=== PATIENT | male | born 1945 | race Caucasian/White ===

== ENCOUNTER 2019-08-24 07:55 | Day surgery (SDC) | payer MEDICARE, OTHER ==
[~2019-08-24 07:55] MED LIST: Ketamine 500 mg/10 ML MDV ONE; Midazolam 1 MG/ML 2 ML SDV ONE; Propofol 200 MG/20 ML SDV ONE; Sodium Chloride 0.9% 10 ML Syringe FLUSH PRN; fentaNYL 100 MCG/2 ML SDV ONE
[2019-08-24] MEDS ORDERED: Lactated Ringers 1,000 ML IV SCH (09:00)
[2019-08-24] MEDS ORDERED: Lidocaine 0.5% 50 ML SDV ONE (09:10)
[2019-08-24] MEDS ORDERED: fentaNYL 100 MCG/2 ML SDV ONE (09:10)
[2019-08-24] MEDS ORDERED: Ketamine 500 mg/10 ML MDV ONE (09:10)
[2019-08-24] MEDS ORDERED: Propofol 200 MG/20 ML SDV ONE (09:10)
[2019-08-24] MEDS ORDERED: Midazolam 1 MG/ML 2 ML SDV ONE (09:10)
--- NOTE | 2019-08-24 09:18 | PCM.PN ---
- General Info Date of Service: 08/24/19 - Review of Systems Systems Review Comment:: 74-year-old male here for left carpal tunnel release. He has a many year history of symptoms. He also has had a nerve study which documents this condition. He is had no improvement with conservative management. The patient is medically stable to proceed today. His recent history and physical is reviewed and no significant changes are noted. The site of the proposed surgery is confirmed with the patient and marked. I have discussed the proposed left carpal tunnel release with the patient. Indications options and risks are reviewed. He agrees to proceed. - Patient Data Vitals - Most Recent: Last Vital Signs Temp 97.5 F 08/24/19 08:29 Pulse 60 08/24/19 08:29 Resp 16 08/24/19 08:29 BP 119/78 08/24/19 08:29 Pulse Ox 94 L 08/24/19 08:29 Weight - Most Recent: 77.111 kg Med Orders - Current: Current Medications Lactated Ringer's (Ringers, Lactated) 1,000 mls @ 125 mls/hr IV ASDIRECTED RALPH Last Admin: 08/24/19 09:02 Dose: 125 mls/hr Documented by: Sodium Chloride (Saline Flush) 10 ml FLUSH ASDIRECTED PRN PRN Reason: Keep Vein Open Last Admin: 08/24/19 09:02 Dose: 10 ml Documented by: Discontinued Medications Fentanyl (Sublimaze) Confirm Administered Dose 100 mcg .ROUTE .STK-MED ONE Stop: 08/24/19 07:46 Ketamine HCl (Ketalar) Confirm Administered Dose 500 mg .ROUTE .STK-MED ONE Stop: 08/24/19 07:46 Midazolam HCl (Versed 1 Mg/Ml) Confirm Administered Dose 2 mg .ROUTE .STK-MED ONE Stop: 08/24/19 07:46 Propofol (Diprivan 20 Ml) Confirm Administered Dose 600 mg .ROUTE .STK-MED ONE Stop: 08/24/19 07:46 Sepsis Event Note - Focused Exam Vital Signs: Vital Signs Temp Pulse Resp BP Pulse Ox 08/24/19 08:29 97.5 F 60 16 119/78 94 L Date Exam was Performed: 08/24/19 Time Exam was Performed: 09:15 - Problem List Review Problem List Initiated/Reviewed/Updated: Yes - My Orders Last 24 Hours: My Active Orders 08/24/19 09:00 Lactated Ringers [Ringers, Lactated] 1,000 ml IV ASDIRECTED - Assessment Assessment:: Left carpal tunnel syndrome - Plan Plan:: Left carpal tunnel release
[2019-08-24] MEDS ORDERED: Bupivacaine 0.25%/EPINEPHrine 1:200,000 30 ML SDV INFILT ONE (09:39)
--- NOTE | 2019-08-24 09:56 | PCM.OPNOTE ---
- General Post-Op/Procedure Note Date of Surgery/Procedure: 08/24/19 Operative Procedure(s): Left carpal tunnel release Findings: Thickening of the left transverse carpal ligament causing compression of the underlying median nerve. Pre Op Diagnosis: Left carpal tunnel syndrome Post-Op Diagnosis: Same Anesthesia Technique: Regional Block Primary Surgeon: Darian Aguayo Pathology: none EBL in mLs: 5 Complications: None Condition: Good
[2019-08-24 10:26] VITALS: BP 124/75; PULSE 54
--- NOTE | 2019-08-24 16:25 | OR ---
Date of Procedure: 08/24/2019 PREOPERATIVE DIAGNOSIS: Left carpal tunnel syndrome. POSTOPERATIVE DIAGNOSIS: Left carpal tunnel syndrome. OPERATION PERFORMED: Left carpal tunnel release. INDICATIONS FOR SURGERY: This 74-year-old male has a longstanding history of gradually worsening numbness in the fingers of his left hand. Studies have documented left carpal tunnel syndrome and he comes for surgical carpal tunnel release. FINDINGS: The patient's left transverse carpal ligament is hypertrophied causing pressure on the underlying median nerve. Structures otherwise appear satisfactory. DESCRIPTION OF PROCEDURE: The patient was taken to the operating room. He was given IV regional anesthesia to the left hand, which was then sterilely prepped and draped. A longitudinally oriented linear incision was made along the palmar surface of the left wrist. Dissection proceeded down onto the left transverse carpal ligament which was incised over and parallel to the course of the underlying median nerve. Ligament was completely divided at this level as are any potentially constricting fibrous bands proximally and distally. Great care was used to avoid any injury to the underlying nerve or its branches. After the nerves have been completely released at this level, the wound was irrigated with saline and then closed by approximating the skin edges with interrupted 4-0 Prolene in a mattress technique. The wound was infiltrated with Marcaine, antibiotic ointment, and sterile dressing were placed. This was held in position with an Cole bandage. Tourniquet was released, and the patient was taken from the operating room in satisfactory condition. ESTIMATED BLOOD LOSS: 5 mL. COMPLICATIONS: None. PROGNOSIS: Good. JACKLYN Aguayo MD /[id number]
== END 2019-08-24 11:50 | disposition home or self-care (01) ==
LOC: LL.SDS 07:55
PROVIDERS: ATTEND Surgery
DX: G56.02 Carpal tunnel syndrome, left upper limb (principal); E78.2 Mixed hyperlipidemia; I10 Essential (primary) hypertension; K21.9 Gastro-esophageal reflux disease without esophagitis; F17.220 Nicotine dependence, chewing tobacco, uncomplicated; Z79.899 Other long term (current) drug therapy; Z79.82 Long term (current) use of aspirin; Z88.0 Allergy status to penicillin
CPT/HCPCS: 64721; J2001; J2250; J2704; J3010; J7120

== ENCOUNTER 2020-08-29 10:16 | Day surgery (SDC) | payer MEDICARE, OTHER ==
[~2020-08-29 10:16] MED LIST changes: -Ketamine 500 mg/10 ML MDV ONE; -Sodium Chloride 0.9% 10 ML Syringe FLUSH PRN; -fentaNYL 100 MCG/2 ML SDV ONE
[2020-08-29] MEDS ORDERED: Sodium Chloride 0.9% 10 ML Syringe FLUSH PRN ×2 (10:46→10:53)
[2020-08-29] MEDS: Lactated Ringers 1,000 ML IV SCH (11:11)
[2020-08-29] MEDS ORDERED: Midazolam 1 MG/ML 2 ML SDV ONE (11:33)
[2020-08-29] MEDS ORDERED: Propofol 200 MG/20 ML SDV ONE (11:33)
--- NOTE | 2020-08-29 11:33 | PCM.HPR ---
H & P Addendum review - H & P Addendum Review Date of Original H & P: 08/26/20 Date Reviewed: 08/29/20 Time Reviewed: 11:33 Patient was Examined: No Changes
--- NOTE | 2020-08-29 11:55 | PCM.OPNOTE ---
- General Post-Op/Procedure Note Date of Surgery/Procedure: 08/29/20 Operative Procedure(s): Colonoscopy Findings: Sig tics Pre Op Diagnosis: Hematochezia Post-Op Diagnosis: Same Anesthesia Technique: MAC Primary Surgeon: Ron Brandon Anesthesia Provider: Catrina Rm Complications: None Condition: Good
--- NOTE | 2020-08-29 13:34 | OR ---
Date of Procedure: 08/29/2020 PREOPERATIVE DIAGNOSIS: Hematochezia. POSTOPERATIVE DIAGNOSIS: Sigmoid diverticulosis. PROCEDURE: Colonoscopy. ANESTHESIA: IV sedation. PROCEDURE IN DETAIL: The patient was brought to the procedure room where he was placed on his left side and IV sedation administered. Digital rectal exam was performed which was normal. Colonoscope was inserted and advanced to the level of the cecum with some difficulty getting through a tortuous sigmoid colon. Cecum was reached and confirmed by identifying the appendiceal lumen and ileocecal valve. Prep was good and surfaces were well visualized. Upon withdrawing the scope, the ascending, transverse, and descending colon were normal in appearance. Sigmoid colon had multiple diverticula present. Rectum was normal and retroflexion was normal. Air was removed and the scope withdrawn. The patient tolerated the procedure well and returned to Recovery in stable condition. No further colonoscopies are necessary due to the patient's age. JACKLYN RIVERA MD /[id number]
[2020-08-29 13:49] VITALS: BP 106/63; PULSE 55
== END 2020-08-29 13:05 | disposition home or self-care (01) ==
LOC: LL.SDS 10:16
PROVIDERS: ATTEND Surgery
DX: K57.30 Diverticulosis of large intestine without perforation or abscess without bleeding (principal); K63.89 Other specified diseases of intestine; I12.9 Hypertensive chronic kidney disease with stage 1 through stage 4 chronic kidney disease, or unspecified chronic kidney disease; N18.30 Chronic kidney disease, stage 3 unspecified; E78.2 Mixed hyperlipidemia; Z79.82 Long term (current) use of aspirin; Z79.899 Other long term (current) drug therapy; Z88.0 Allergy status to penicillin; Z98.890 Other specified postprocedural states; Z80.0 Family history of malignant neoplasm of digestive organs
CPT/HCPCS: 00812; J2250; J2704; J7120

== ENCOUNTER 2022-06-17 09:27 | Emergency (ER) | payer MEDICARE ==
[2022-06-17] MEDS ORDERED: Sodium Chloride 0.9% 1,000 ML IV SCH (09:45)
[2022-06-17 10:30] LABS: ANION GAP 10.1 meq/L (7-15)
[2022-06-17] MEDS ORDERED: Tamsulosin 0.4 MG Cap.ER PO ONE (11:54)
[2022-06-17] MEDS ORDERED: Oxybutynin 5 MG Tab.ER PO ONE (12:15)
[2022-06-17 12:30] VITALS: BP 128/69; PULSE 66
[2022-06-18] MEDS ORDERED: Oxybutynin 5 MG Tab.ER PO ONE (11:54)
== END 2022-06-17 13:00 | disposition home or self-care (01) ==
LOC: LL.ED 09:27
DX: N13.2 Hydronephrosis with renal and ureteral calculous obstruction (principal); K57.32 Diverticulitis of large intestine without perforation or abscess without bleeding; E78.00 Pure hypercholesterolemia, unspecified; I10 Essential (primary) hypertension; Z72.0 Tobacco use; Z88.0 Allergy status to penicillin; Z79.82 Long term (current) use of aspirin; Z79.899 Other long term (current) drug therapy
CPT/HCPCS: 36415; 74176; 80053; 81003; 85025; 86140; 96360; 96361; 99284; 99284-25; A9270-GY; J7030